=== PATIENT | female | born 1975 | race Caucasian/White ===

== ENCOUNTER 2018-11-12 05:51 | Day surgery (SDC) | payer OTHER ==
[2018-11-12] MEDS ORDERED: Acetaminophen 500 MG Tab PO ONE (06:00)
[2018-11-12] MEDS ORDERED: Dextrose 5%-Lactated Ringers 1,000 ML IV SCH (06:00)
[2018-11-12] MEDS ORDERED: Bupivacaine 0.5%/EPINEPHrine 1:200,000 50 ML MDV ONE (06:40)
[2018-11-12] MEDS ORDERED: Meropenem 500 MG SDV ONE (06:41)
[2018-11-12] MEDS ORDERED: Neostigmine Methylsulfate 1 MG/ML 5 ML Syringe ONE (06:59)
[2018-11-12] MEDS ORDERED: Glycopyrrolate 0.2 MG/ML 5 ML MDV ONE (06:59)
[2018-11-12] MEDS ORDERED: Rocuronium 50 MG/5 ML Vial ONE (06:59)
[2018-11-12] MEDS ORDERED: Ondansetron 4 MG/2 ML SDV ONE (06:59)
[2018-11-12] MEDS ORDERED: Succinylcholine 200 MG/10 ML MDV ONE (06:59)
[2018-11-12] MEDS ORDERED: Propofol 200 MG/20 ML SDV ONE (06:59)
[2018-11-12] MEDS ORDERED: fentaNYL 250 MCG/5 ML SDV ONE (06:59)
[2018-11-12] MEDS ORDERED: Dexamethasone 4 MG/ML SDV ONE (06:59)
[2018-11-12] MEDS ORDERED: ceFAZolin 2 GM in Premix Bag 1 BAG IV ONE (07:00)
[2018-11-12] MEDS: ceFAZolin 2 GM in Sodium Chloride 0.9% 50 ML IV ONE ×2 (07:56→10:35)
[2018-11-12] MEDS ORDERED: Ketamine 500 MG/5 ML MDV IV SCH (08:00)
[2018-11-12] MEDS ORDERED: fentaNYL 100 MCG/2 ML SDV ONE (09:14)
[2018-11-12] MEDS ORDERED: Ketorolac 60 MG/2 ML SDV IM ONE (09:35)
[2018-11-12] MEDS ORDERED: hydrOXYzine HCl 100 MG/2 ML SDV IM ONE (09:40)
[2018-11-12] MEDS ORDERED: HYDROmorphone 2 MG Tab PO PRN (10:38)
[2018-11-12] MEDS ORDERED: Ondansetron 4 MG Tab.DIS PO PRN (10:38)
[2018-11-12] MEDS: Dextrose 5%-Lactated Ringers 1,000 ML IV SCH ×2 (11:28→18:07)
[2018-11-12] MEDS ORDERED: Acetaminophen 500 MG Tab PO SCH (12:00)
[2018-11-12] MEDS ORDERED: oxyCODONE 5 MG Tab PO ONE (14:28)
[2018-11-12] MEDS ORDERED: hydrOXYzine HCl 100 MG/2 ML SDV IM PRN (14:52)
[2018-11-12] MEDS: Ketorolac 10 MG Tab PO SCH ×2 (15:45→21:16)
[2018-11-12] MEDS: Acetaminophen/oxyCODONE 325-5 MG Tab PO PRN (20:13)
[2018-11-13] MEDS: Ketorolac 10 MG Tab PO SCH ×2 (05:11→10:13)
[2018-11-13 07:58] VITALS: BP 141/80; PULSE 86
[2018-11-13] MEDS: Acetaminophen/oxyCODONE 325-5 MG Tab PO PRN (09:01)
[2018-11-13] MEDS ORDERED: Magnesium Hydroxide 400 MG/5 ML Susp 30 ML Cup PO STA (10:29)
--- NOTE | 2018-11-13 14:08 | DISCH ---
ADMISSION DIAGNOSES: 1. Umbilical hernia. 2. Vitamin D deficiency. 3. Gastroesophageal reflux disease. 4. Iron deficiency anemia. DISCHARGE DIAGNOSES: Diagnostic laparoscopy with repair of incarcerated incisional and incarcerated right spigelian hernia and placement of Interceed mesh for incarcerated incisional umbilical hernia and incarcerated right spigelian hernia. High risk of postop adhesions. Date of surgery: 11/12/2018. HISTORY: Dottie Ramirez is a 43-year-old female with an incarcerated umbilical hernia and right spigelian hernia. After preoperative evaluation and discussion of possible risks and possible complications, she wished to proceed with surgical procedure. HOSPITAL COURSE: Dottie had no operative complications. On postoperative day #1, her pain was controlled, activity was good, vital signs were stable, and she was able to be discharged to home. PHYSICAL EXAMINATION: GENERAL: Dottie is a 43-year-old female. VITAL SIGNS: Height is 5 feet 9 inches, weight is 293 pounds, BMI is 43.3. TPR 96.2, 86, 16, blood pressure 141/80. HEENT: Negative. NECK: Supple. HEART: Regular rate and rhythm. LUNGS: Clear. ABDOMEN: Dressings dry and intact. Abdominal binder is on. EXTREMITIES: Without peripheral edema. DISPOSITION: Discharged to home. CONDITION: Stable and improving. FOLLOWUP: With Fabiana Chaney PA-C, on 11/22/2018 at 10 a.m. HOME MEDICATIONS: 1. Percocet 5/325 mg one tablet every 4 hours p.r.n. pain #30. 2. Toradol 10 mg oral 4 times a day for 5 days, #20 given. She is to resume home medications of: 1. Zyrtec 10 mg daily. 2. Nexium 40 mg oral daily. 3. Zoloft 100 mg at bedtime. DIET: Usual diet as tolerated. Drink 8 to 10 glasses of water a day. ACTIVITY: No lifting greater than 10 pounds for 6 weeks. Other activity: Walk at least 6 times daily inside your house. Driving: Do not drive for 1 week and while on pain medication. Shower/bathing: May shower. DISCHARGE INSTRUCTIONS: Notify provider if any fever, increased pain, nausea, vomiting. Keep site clean and dry. Wear a pressure dressing over hernia site for 2 weeks. Wear abdominal binder for 4 to 6 weeks as tolerated. SPECIAL INSTRUCTIONS: Use incentive spirometer 10 times every hour while awake for 1 week.
--- NOTE | 2018-11-16 09:55 | OR ---
DATE OF PROCEDURE: 11/12/2018 SURGEON: Pato Longoria MD PREOPERATIVE DIAGNOSIS: Incarcerated periumbilical hernia. POSTOPERATIVE DIAGNOSES: 1. Incarcerated incisional and incarcerated right spigelian hernias. 2. High risk for postoperative adhesions between pelvic and abdominal wall. OPERATIVE PROCEDURES: 1. Diagnostic laparoscopy with lysis of adhesions. a. Repair of incarcerated incisional hernia with mesh (72671). b. Repair of incarcerated right spigelian hernia with mesh (55057). c. Placement of Interceed mesh to displace pelvic and abdominal wall from underlying viscera to limit recurrent adhesion formation (48200). ANESTHESIA: General. INDICATION FOR PROCEDURE: A 43-year-old presenting with a hernia located in the periumbilical area. Plan is to proceed with diagnostic laparoscopy for clarification of the specific diagnosis with repair of any identifiable hernias with a mesh technique. Potential risks including bleeding, infection, injury to underlying viscera, problems with mesh becoming infected, or the hernias recurring were all reviewed, and the patient wishes to proceed. DETAILS OF PROCEDURE: The patient was taken to the operating room, placed in a supine position. After general endotracheal anesthesia was induced, a Holly catheter was inserted, and the abdomen prepped and draped. In the left lateral abdomen, transverse incision was made and the peritoneal cavity entered under direct vision with an Optiview trocar, inflated to 15 mmHg pressure with CO2. The laparoscope was then inserted. No underlying trocar insertion site injuries were seen. Two additional trocars, 1 in the left upper quadrant and 1 in the left lower quadrant were then placed and the area examined. Bilateral transversus abdominis plane blocks were then placed without difficulty. Some adhesions in the periumbilical area were taken down with Harmonic scalpel these adhesions were between the omentum and the anterior abdominal wall. As the area was cleared of some preperitoneal fat it became evident that there were 2 hernias, one was an incarcerated hernia in the previous periumbilical incision used for cholecystectomy, this contained some omentum within it, and then to the right and slightly inferior to that, there was a spigelian hernia that had some preperitoneal fat along with a small tongue of omentum incarcerated in it as well. These incarcerated components were then dissected free and removed with the aid of Harmonic scalpel along with external pressure. Specimens were then delivered from the field. Area of dissection was then inspected and it appeared that we could adequately cover both hernia sites with a 20.[address] mesh. Initially the spigelian hernia was occluded at the fascia level with [id number] stitch of 0 Vicryl stitch. The periumbilical incisional hernia defect did not appear to warrant additional closure. The mesh was soaked in antibiotic-containing saline solution and rolled up and placed in an intraperitoneal location at a point that was more or less immediately between the 2 hernias. The balloon catheter was pulled up through a small stab wound. The balloon inflated. The mesh was then circumferentially fixed with absorbable tacking screws. The balloon catheter was then deflated and withdrawn, and good fixation of the mesh was confirmed. At that point, to limit recurrent adhesion formation to both the mesh as well as the remainder of the pelvic and abdominal wall, Interceed mesh was placed in that area, and some additional antibiotic irrigation injected. The trocars were then sequentially removed. The fascia at the 12 mm site was closed with 0 Vicryl stitch and the skin at each incision with 4-0 Vicryl stitch. The suture site was also anesthetized with 0.5% Marcaine and the patient was taken to the recovery room in satisfactory condition. There were no evident complications. Pato Longoria MD /[id number]
== END 2018-11-13 11:05 | disposition home or self-care (01) ==
LOC: JP.SDS 05:51 → JP.MS 10:10 → JP.SDS 11-13 11:05
PROVIDERS: ATTEND Surgery
DX: K43.0 Incisional hernia with obstruction, without gangrene (principal); K43.6 Other and unspecified ventral hernia with obstruction, without gangrene; K66.0 Peritoneal adhesions (postprocedural) (postinfection); K21.9 Gastro-esophageal reflux disease without esophagitis; D50.9 Iron deficiency anemia, unspecified; E55.9 Vitamin D deficiency, unspecified; E66.9 Obesity, unspecified; F41.9 Anxiety disorder, unspecified; Z88.0 Allergy status to penicillin; Z88.2 Allergy status to sulfonamides; Z68.41 Body mass index [BMI] 40.0-44.9, adult; Z79.899 Other long term (current) drug therapy
CPT/HCPCS: 49653; 49655; 81025; A9270; C1713; C1781; J0171; J0330; J0690; J1100; J1885; J2020; J2185; J2405; J2704; J2710; J2795; J3010; J3410; J3490; J7042; J7050; 88302